=== PATIENT | female | born 1960 | race Caucasian/White ===

== ENCOUNTER 2018-02-06 14:41 | Emergency (ER) | payer MEDICAID ==
[~2018-02-06] VITALS: Ht 162.6 cm; Wt 64.4 kg
--- NOTE | 2018-02-06 15:00 | NUR ---
A/O X 4. PT NEG ACUTE DISTRESS. VSS. NEG SOB. PT STABLE CONDITION. LEFT LOWER EXTREMITY PAIN, SWELLING. SAFETY MEASURES IN PLACE.
[2018-02-06 17:00] VITALS: BP 130/66
== END 2018-02-06 17:01 | disposition home or self-care (01) ==
LOC: ER 14:45
DX: M79.652 Pain in left thigh (principal); M79.1 Myalgia; E03.9 Hypothyroidism, unspecified; Z88.6 Allergy status to analgesic agent; Z60.2 Problems related to living alone
CPT/HCPCS: 73564-TC; 93971-TC; A4606; Z7610

== ENCOUNTER 2020-04-02 21:11 | Emergency (ER) | payer MEDICAID ==
[~2020-04-02] VITALS: Ht 162.6 cm; Wt 65.8 kg
--- NOTE | 2020-04-02 21:11 | NUR ---
called pt in wr x3. no one responded. will follow up.
[2020-04-02 21:13] VITALS: BP 118/65
--- NOTE | 2020-04-02 21:15 | NUR ---
PT CAME TO THE ED C/O MID LOW BACK PAIN, L THIGH PAIN, L UPPER ARM PAIN S/P TRIP AND FALL. PT AAOX4, VSS, RESPIRATIONS EVEN AND UNLABORED ON RA W/ NAD NOTED. PT CONNECTED TO THE MONITOR AND POX.
--- NOTE | 2020-04-02 21:37 | NUR ---
BARBARA CHRISTOPHER AT BEDSIDE
--- NOTE | 2020-04-02 21:48 | NUR ---
PT TAKEN TO CT
[2020-04-02] MEDS ORDERED: ACETAMINOPHEN ES 500 MG TABLET ONE (21:49)
[2020-04-02] MEDS ORDERED: ACETAMINOPHEN 325 MG TABLET PO ONE (22:00)
--- NOTE | 2020-04-02 22:00 | NUR ---
PT BACK FROM CT
--- NOTE | 2020-04-02 23:02 | NUR ---
Patient discharged to home in stable condition. Written and verbal after care instructions given. Patient verbalizes understanding of instruction.
== END 2020-04-02 23:11 | disposition home or self-care (01) ==
LOC: ER 21:11
DX: S30.810A Abrasion of lower back and pelvis, initial encounter (principal); S80.212A Abrasion, left knee, initial encounter; S60.512A Abrasion of left hand, initial encounter; S09.8XXA Other specified injuries of head, initial encounter; E03.9 Hypothyroidism, unspecified; Z88.6 Allergy status to analgesic agent; Z60.2 Problems related to living alone; W01.0XXA Fall on same level from slipping, tripping and stumbling without subsequent striking against object, initial encounter; Y93.01 Activity, walking, marching and hiking; Y92.89 Other specified places as the place of occurrence of the external cause; Y99.8 Other external cause status
CPT/HCPCS: 70450-TC; 72131-TC; 73564-TC